=== PATIENT | female | born 1985 | race Hispanic/Latino ===

== ENCOUNTER 2017-12-07 18:39 | Emergency (ER) | payer OTHER, SELFPAY ==
[2017-12-07] MEDS ORDERED: ACETAMINOPHEN EXTRA STRENGTH 500 MG TABLET ONE (19:23)
[2017-12-07 19:56] LABS: APPEARANCE,URINE Clear (CLEAR); BILIRUBIN,URINE Negative (NEGATIVE); COLOR,URINE Yellow (YELLOW); GLUCOSE, URINE (UA) Negative (NEGATIVE); KETONES,URINE Negative (NEGATIVE); LEUKOCYTE ESTERASE ,URINE Trace (NEGATIVE); NITRATE,URINE Negative (NEGATIVE); OCCULT BLOOD,URINE Negative (NEGATIVE); PROTEIN,URINE Negative (NEGATIVE); UROBILINOGEN,URINE 0.2 mg/dL (0.2-1.0)
[2017-12-07 20:05] LABS: HCG,QUAL RESULT NEGATIVE (NEGATIVE)
[2017-12-07 20:13] LABS: BACTERIA,URINE Few /HPF (None Seen); RBC,URINE None Seen /HPF (0-1)
[2017-12-07] MEDS ORDERED: IPRATROPIUM/ALBUTEROL SULFATE 3 ML SOLUTION IH ONE (20:25)
[2017-12-07] MEDS ORDERED: IBUPROFEN 600 MG TABLET ONE (20:48)
== END 2017-12-07 21:01 | disposition home or self-care (01) ==
LOC: EDH 18:39
DX: J10.1 Influenza due to other identified influenza virus with other respiratory manifestations (principal); Z98.890 Other specified postprocedural states
CPT/HCPCS: 71046; 81001; 81025; 87804; 94640

== ENCOUNTER 2019-01-16 10:18 | Emergency (ER) | payer OTHER, SELFPAY | END 2019-01-16 11:38 | disposition home or self-care (01) | LOC: EDH 10:18 | DX: S93.492A Sprain of other ligament of left ankle, initial encounter (principal); Z98.890 Other specified postprocedural states; Z87.891 Personal history of nicotine dependence; W01.0XXA Fall on same level from slipping, tripping and stumbling without subsequent striking against object, initial encounter; Y93.89 Activity, other specified; Y92.89 Other specified places as the place of occurrence of the external cause; Y99.8 Other external cause status | CPT/HCPCS: 73610 ==

== ENCOUNTER 2019-09-23 00:16 | Inpatient (IN) | payer OTHER, SELFPAY ==
[~2019-09-23] VITALS: Ht 170.2 cm; Wt 120.9 kg
[2019-09-23 00:42] LABS: BILIRUBIN,URINE Small (NEGATIVE); COLOR,URINE Dark Yellow (YELLOW); GLUCOSE, URINE (UA) TRACE mg/dL (NEGATIVE); KETONES,URINE Trace mg/dL (NEGATIVE); LEUKOCYTE ESTERASE ,URINE Small (NEGATIVE); NITRATE,URINE Negative (NEGATIVE); OCCULT BLOOD,URINE Negative (NEGATIVE); PH,URINE 5.5 (5.0-8.0); PROTEIN,URINE POS 1+ mg/dL (NEGATIVE)
[2019-09-23 00:43] LABS: HCG,QUAL RESULT NEGATIVE (NEGATIVE)
[2019-09-23 00:44] LABS: APPEARANCE,URINE SLIGHTLY CLOUDY (CLEAR)
[2019-09-23 00:53] LABS: BACTERIA,URINE Few /HPF (None Seen); MUCUS,URINE Few LPF (None Seen); RBC,URINE 0-1 /HPF (0-1)
[2019-09-23 01:16] LABS: BASOPHILS % (AUTO) 0.5 % (0.0-5.0); EOSINOPHILS % (AUTO) 1.4 % (0.0-8.0); HEMATOCRIT 37.4 % (36-48); LYMPHOCYTES % (AUTO) 10.2 % (21.0-51.0); MEAN CORPUSCULAR HEMOGLOBIN 28.5 pg (27.0-33.0); MEAN CORPUSCULAR HGB CONC 34.2 g/dL (32.0-36.0); MEAN CORPUSCULAR VOLUME 83.3 fL (79-99); MONOCYTES % (AUTO) 9.3 % (3.0-13.0); NEUTROPHILS % (AUTO) 78.1 % (40.0-77.0); PLATELET COUNT (AUTO) 257 K/uL (130-400); RED BLOOD CELL COUNT(AUTO) 4.49 MIL/uL (4.00-5.50); RED CELL DISTRIBUTION WIDTH 12.3 % (11.0-15.5); WHITE BLOOD COUNT (AUTO) 13.7 K/uL (4.8-10.8)
[2019-09-23] MEDS ORDERED: KETOROLAC TROMETHAMINE 30MG/ML ONE (01:20)
[2019-09-23] MEDS ORDERED: ACETAMINOPHEN EXTRA STRENGTH 500 MG TABLET ONE (01:21)
[2019-09-23] MEDS ORDERED: FAMOTIDINE/PF 20 MG/2 ML VIAL IV ONE (01:21)
[2019-09-23 01:25] LABS: CREATININE 0.7 mg/dL (0.5-1.5); POTASSIUM 3.6 mmol/L (3.5-5.1)
[2019-09-23 01:28] LABS: INR 0.97 (0.85-1.15); PARTIAL THROMBOPLASTIN TIME 28.5 SEC (26.3-35.5); PROTHROMBIN TIME 10.2 SEC (9.6-11.6)
[2019-09-23 01:30] LABS: ALBUMIN 3.6 g/dL (3.5-5.0); BILIRUBIN,TOTAL 2.5 mg/dL (0.2-1.0); TOTAL PROTEIN, SERUM 7.1 g/dL (6.0-8.3)
[2019-09-23] MEDS ORDERED: IOHEXOL-350 75 ML VIAL IV ONE (02:33)
[2019-09-23] MEDS ORDERED: LEVOFLOXACIN 750 MG/D5W 150 ML 150 ML ONE (03:25)
[2019-09-23] MEDS ORDERED: METRONIDAZOLE 500MG/100ML BAG 100 ML ONE (03:25)
[2019-09-23] MEDS ORDERED: MORPHINE SULFATE 2 MG/ML 1ML SYG ONE (03:53)
[2019-09-23] MEDS ORDERED: ONDANSETRON HCL 4 MG/2 ML VIAL ONE (03:53)
[2019-09-23] MEDS ORDERED: HYDRALAZINE HCL 20 MG/ML VIAL IV PRN (04:15)
[2019-09-23] MEDS ORDERED: ACETAMINOPHEN 325 MG TAB PO PRN (04:15)
[2019-09-23] MEDS ORDERED: LACTULOSE 20 GM/30 ML UDCUP PO PRN (04:15)
[2019-09-23] MEDS ORDERED: MORPHINE SULFATE 2 MG/ML 1ML SYG IV PRN (04:15)
[2019-09-23 05:00] VITALS: BP 113/62
[2019-09-23] MEDS ORDERED: METRONIDAZOLE 500MG/100ML BAG 100 ML IV SCH (06:00)
[2019-09-23] MEDS ORDERED: METO-391 PO (06:12)
[2019-09-23] MEDS ORDERED: LISI-613 PO (06:12)
[2019-09-23] MEDS ORDERED: FEXO-23 PO (06:12)
[2019-09-23] MEDS ORDERED: P-EP1TBM2 PO (06:12)
[2019-09-23 07:00] VITALS: BP 100/67
[2019-09-23] MEDS: ENOXAPARIN SODIUM 40 MG/0.4 ML SYRINGE SQ SCH (09:26)
[2019-09-23] MEDS: METRONIDAZOLE 500MG/100ML BAG 100 ML IV SCH ×4 (09:26→20:49)
[2019-09-23 11:00] VITALS: BP 173/97
[2019-09-23] MEDS: ACETAMINOPHEN 325 MG TAB PO PRN ×2 (13:39→20:49)
[2019-09-23 16:00] VITALS: BP 129/97
--- NOTE | 2019-09-23 16:15 | NUR ---
D/C PLAN CM spoke to pt regarding d/c planning. Pt is ind. and lives with parents. States parents can assist in care as needed. CM provided community resources packet. Plan to home. No needs verbalized or identified. CM to f/u. Addendum: 09/23/19 at 1617 by HERMILO HUA CM Amended: Links added.
[2019-09-23] MEDS: SODIUM CHLORIDE 0.9% 1000ML 1,000 ML IV SCH ×2 (18:11→20:49)
[2019-09-23 19:27] VITALS: BP 124/92
[2019-09-23] MEDS ORDERED: PHARMACY COMMUNICATION MISC SCH (20:15)
[2019-09-24] VITALS: BP 132/74
[2019-09-24 04:04] VITALS: BP 127/74
[2019-09-24] MEDS: LEVOFLOXACIN 750 MG/D5W 150 ML 150 ML IV SCH (04:34)
[2019-09-24] MEDS: ONDANSETRON HCL 4 MG/2 ML VIAL IV PRN ×2 (04:40→21:43)
[2019-09-24 06:56] LABS: BASOPHILS % (AUTO) 0.6 % (0.0-5.0); EOSINOPHILS % (AUTO) 5.1 % (0.0-8.0); HEMATOCRIT 32.4 % (36-48); LYMPHOCYTES % (AUTO) 14.9 % (21.0-51.0); MEAN CORPUSCULAR HEMOGLOBIN 28.6 pg (27.0-33.0); MEAN CORPUSCULAR HGB CONC 34.6 g/dL (32.0-36.0); MEAN CORPUSCULAR VOLUME 82.7 fL (79-99); MONOCYTES % (AUTO) 10.5 % (3.0-13.0); NEUTROPHILS % (AUTO) 68.5 % (40.0-77.0); PLATELET COUNT (AUTO) 208 K/uL (130-400); RED BLOOD CELL COUNT(AUTO) 3.92 MIL/uL (4.00-5.50); RED CELL DISTRIBUTION WIDTH 12.2 % (11.0-15.5); WHITE BLOOD COUNT (AUTO) 9.5 K/uL (4.8-10.8)
[2019-09-24 07:00] VITALS: BP 143/86
[2019-09-24 07:06] LABS: CREATININE 0.6 mg/dL (0.5-1.5); POTASSIUM 3.6 mmol/L (3.5-5.1)
[2019-09-24] MEDS: IBUPROFEN 600 MG TABLET PO PRN ×2 (07:18→17:27)
[2019-09-24] MEDS ORDERED: LEVOFLOXACIN 750 MG/D5W 150 ML 150 ML IV SCH (09:00)
[2019-09-24] MEDS: METRONIDAZOLE 500MG/100ML BAG 100 ML IV SCH ×4 (09:09→21:44)
[2019-09-24] MEDS: ENOXAPARIN SODIUM 40 MG/0.4 ML SYRINGE SQ SCH (09:10)
[2019-09-24 12:00] VITALS: BP 157/91
[2019-09-24 16:00] VITALS: BP 154/97
[2019-09-24 19:34] VITALS: BP 147/84
[2019-09-24] MEDS: SODIUM CHLORIDE 0.9% 1000ML 1,000 ML IV SCH (21:44)
[2019-09-25] VITALS: BP 102/59
[2019-09-25 04:00] VITALS: BP 116/68
[2019-09-25] MEDS: LEVOFLOXACIN 750 MG/D5W 150 ML 150 ML IV SCH (04:40)
[2019-09-25] MEDS: ONDANSETRON HCL 4 MG/2 ML VIAL IV PRN ×3 (04:41→22:06)
[2019-09-25] MEDS: SODIUM CHLORIDE 0.9% 1000ML 1,000 ML IV SCH ×3 (06:07→16:07)
[2019-09-25 06:22] LABS: BASOPHILS % (AUTO) 0.7 % (0.0-5.0); EOSINOPHILS % (AUTO) 8.6 % (0.0-8.0); LYMPHOCYTES % (AUTO) 20.7 % (21.0-51.0); MEAN CORPUSCULAR HEMOGLOBIN 28.3 pg (27.0-33.0); MEAN CORPUSCULAR HGB CONC 34.1 g/dL (32.0-36.0); MEAN CORPUSCULAR VOLUME 83.1 fL (79-99); MONOCYTES % (AUTO) 9.8 % (3.0-13.0); NEUTROPHILS % (AUTO) 59.9 % (40.0-77.0); PLATELET COUNT (AUTO) 247 K/uL (130-400); RED BLOOD CELL COUNT(AUTO) 3.85 MIL/uL (4.00-5.50); WHITE BLOOD COUNT (AUTO) 6.7 K/uL (4.8-10.8)
[2019-09-25 06:39] LABS: CREATININE 0.6 mg/dL (0.5-1.5); POTASSIUM 3.8 mmol/L (3.5-5.1)
[2019-09-25 07:57] VITALS: BP 113/74
[2019-09-25] MEDS: METRONIDAZOLE 500MG/100ML BAG 100 ML IV SCH ×4 (09:29→22:06)
[2019-09-25] MEDS: ENOXAPARIN SODIUM 40 MG/0.4 ML SYRINGE SQ SCH (09:29)
[2019-09-25 11:32] VITALS: BP 152/98
[2019-09-25 16:00] VITALS: BP 142/77
[2019-09-25 20:00] VITALS: BP 138/80
[2019-09-25] MEDS ORDERED: METOPROLOL SUCCINATE 50 MG TAB.SR.24H PO SCH (21:00)
[2019-09-26] VITALS: BP 145/79
[2019-09-26] MEDS: SODIUM CHLORIDE 0.9% 1000ML 1,000 ML IV SCH ×2 (02:23→12:07)
[2019-09-26 04:00] VITALS: BP 117/73
[2019-09-26] MEDS: LEVOFLOXACIN 750 MG/D5W 150 ML 150 ML IV SCH (04:19)
[2019-09-26] MEDS: IBUPROFEN 600 MG TABLET PO PRN (04:23)
[2019-09-26] MEDS: ONDANSETRON HCL 4 MG/2 ML VIAL IV PRN (05:18)
[2019-09-26 05:32] LABS: EOSINOPHILS % (AUTO) 8.5 % (0.0-8.0); HEMATOCRIT 33.1 % (36-48); MEAN CORPUSCULAR HEMOGLOBIN 28.6 pg (27.0-33.0); MEAN CORPUSCULAR HGB CONC 34.7 g/dL (32.0-36.0); MEAN CORPUSCULAR VOLUME 82.3 fL (79-99); MONOCYTES % (AUTO) 9.7 % (3.0-13.0); NEUTROPHILS % (AUTO) 53.3 % (40.0-77.0); PLATELET COUNT (AUTO) 300 K/uL (130-400); RED BLOOD CELL COUNT(AUTO) 4.02 MIL/uL (4.00-5.50); RED CELL DISTRIBUTION WIDTH 11.9 % (11.0-15.5); WHITE BLOOD COUNT (AUTO) 5.9 K/uL (4.8-10.8)
[2019-09-26 05:41] LABS: CREATININE 0.6 mg/dL (0.5-1.5); POTASSIUM 3.1 mmol/L (3.5-5.1)
[2019-09-26 07:38] VITALS: BP 124/76
--- NOTE | 2019-09-26 08:20 | NUR ---
Reported nausea and vomiting overnight to Dr. Ahmadi as reported by Reny Sorto LVN. Zofran administered x2 IVP. Patient reports metallic taste during IV infusions. Per Dr. Ahmadi, will change Flagyl to PO form and monitor to see how patient tolerates regular diet. If no issues, will discharge this afternoon. Addendum: 09/26/19 at 0843 by LULA BRAGA RN RN Also reported potassium level of 3.1. Received verbal order for potassium replacement from Dr. Ahmadi.
[2019-09-26] MEDS ORDERED: LEVO500T89 PO (08:26)
[2019-09-26] MEDS ORDERED: METR500T PO (08:26)
[2019-09-26] MEDS ORDERED: LIDOCAINE HCL-MPF 1% 2ML VIAL IV PRN ×2 (08:30)
[2019-09-26] MEDS ORDERED: POTASSIUM CHLORIDE 20MEQ/100ML 100 ML IV PRN ×2 (08:30)
[2019-09-26] MEDS ORDERED: POTASSIUM CHLORIDE 10% ELIXIR 20 MEQ/15 ML UDCUP PO PRN (08:30)
[2019-09-26] MEDS ORDERED: LISINOPRIL 20 MG TABLET PO SCH (09:00)
[2019-09-26] MEDS: METRONIDAZOLE 500 MG TABLET PO SCH ×2 (09:30→17:46)
[2019-09-26] MEDS: POTASSIUM CHLORIDE 20 MEQ ERTAB PO PRN ×3 (09:36→14:34)
[2019-09-26] MEDS: ENOXAPARIN SODIUM 40 MG/0.4 ML SYRINGE SQ SCH (09:37)
[2019-09-26 11:09] VITALS: BP 142/93
--- NOTE | 2019-09-26 14:41 | NUR ---
Patient reports no nausea, less metallic taste to mouth and denies pain to abdomen. Tolerating meals. Notified Dr. Ahmadi. Will proceed with discharge.
[2019-09-26 15:42] VITALS: BP 133/95
--- NOTE | 2019-09-26 16:10 | NUR ---
Scheduled follow up appointment with SOLO Sutherland for 10/10/2019 at 8:00 am.
--- NOTE | 2019-09-26 16:26 | NUR ---
Confirmed electronic prescription transmission to [address] was received by pharmacy staff.
== END 2019-09-26 18:20 | disposition home or self-care (01) | DRG 872 ==
LOC: EDH 00:16 → EDHIP 00:17 → 3BH 04:54
PROVIDERS: ADMIT Internal Medicine; ATTEND Internal Medicine
DX: A41.9 Sepsis, unspecified organism (principal); K57.32 Diverticulitis of large intestine without perforation or abscess without bleeding; Z68.41 Body mass index [BMI] 40.0-44.9, adult; E66.01 Morbid (severe) obesity due to excess calories; I10 Essential (primary) hypertension; G43.909 Migraine, unspecified, not intractable, without status migrainosus
CPT/HCPCS: 36415; 74177; 80048; 80053; 81001; 81025; 83605; 83690; 85025; 85610; 85730; 87040; 87088; G0378; J0360; J1650; J1885; J1956; J2405; J3490; J7030; Q9967

== ENCOUNTER 2025-06-18 01:31 | Emergency (ER) | payer OTHER ==
[~2025-06-18] VITALS: Ht 167.6 cm; Wt 127.0 kg
[~2025-06-18 01:31] MED LIST: FEXO-23 PO; LEVO-70 PO; LISI20TA24 PO; METO-391 PO; METR500T PO
[2025-06-18 01:33] VITALS: BP 167/93; PULSE 77; RESP 20; TEMP 98
--- NOTE | 2025-06-18 03:04 | NUR ---
SYEDA HAMMOND AWARE OF NEED FOR EKG
[2025-06-18] MEDS ORDERED: MONT-39 PO (03:05)
--- NOTE | 2025-06-18 03:05 | ERN ---
General Chief Complaint: Congestion Stated Complaint: NASAL CONGESTION Source: patient History of Present Illness Initial Comments 32-year-old female with a past medical history of chronic nasal congestion presents to the emergency department for evaluation of nasal congestion. Patient states she has tried many [id number] medications with little to no relief. She developed which she believes his anxiety and chest tightness so she decided to report to the ER for further evaluation. Allergies: Coded Allergies: No Known Allergies (Unverified Allergy, Unknown, 01/16/19) Home Meds Active Scripts Levofloxacin (Levofloxacin) 500 Mg Tablet, 500 MG PO DAILY for 3 Days, #3 TAB Prov:DANNA PASCUAL MD 09/26/19 Metronidazole (Flagyl) 500 Mg Tablet, 500 MG PO TID for 3 Days, #9 TAB Prov:DANNA PASCUAL MD 09/26/19 Reported Medications Fexofenadine HCl (Erlinda Allergy) 60 Mg Tablet, 60 MG PO DAILY PRN for NASAL CONGESTION, TAB 09/23/19 Lisinopril (Lisinopril) 20 Mg Tablet, 20 MG PO DAILY, TAB 09/23/19 Metoprolol Succinate (Metoprolol Succinate) 50 Mg Tab.er.24h, 50 MG PO HS, TAB 09/23/19 Past Medical History Past Medical History: Other Medical History Other: SEASONAL ALLERGIES Past Surgical History: Tonsillectomy Female( History) LMP: Jun 10, 2025 ROS Dictation CONSTITUTIONAL: Negative except for HPI HEAD/FACE: Negative except for HPI EENT: Negative except for HPI RESPIRATORY: Negative except for HPI GASTROINTESTINAL/ABDOMINAL: Negative except for HPI GENITOURINARY: Negative except for HPI MUSCULOSKELETAL: Negative except for HPI INTEGUMENTARY: Negative except for HPI NEUROLOGICAL/PSYCH: Negative except for HPI HEMATOLOGIC/LYMPHATIC: Negative except for HPI All Systems Negative, Except as noted above. 13 point review of systems assessed and all negative except for above. Physical Exam Physical Exam Dictation Vital Signs reviewed General Appearance: Alert, oriented x 3, no acute distress, well developed, nourished. Head and Face: non-traumatic. Eyes: PERRL, pink conjunctivas, eyelid no trauma, anterior chamber with arcus senilis. Ears: Pinnas intact and no signs of trauma or erythema ear canals clear and no discharge TM no erythema Nose: No discharge, no bleeding. Oropharynx: Mouth normal, tongue pink, pharynx clear,no erythema, tonsils no exudates, no abscesses noted, mucous membrane moist Neck: Supple, non-tender, no thyromegaly, no masses, no JVD, no bruits Breast:Deferred Chest:No tenderness, no crepitus, no paradoxical movement, no retractions Lungs:Clear, well-ventilated, symmetric, no rales, no wheezing, no rhonchi, no stridor, good breath sounds bilaterally Heart: Regular rate, regular rhythm, no murmur, no gallops Vascular: no peripheral edema, Abdomen: Soft, positive bowel sounds, nondistended, no guarding, nontender, no rebound, no masses no hepatomegaly, no splenomegaly, no Zaragoza's sign, no hernias. Rectal: Deferred Genital: Deferred Neurological: Normal speech, motor function intact, sensory function intact Musculoskeletal: Neck nontender, full range of motion, back nontender, full range of motion, Extremities: nontender, full range of motion Skin: Color pink, dry, no turgor, no rash, no lacerations, no abrasions, no contusions. Lymphatic: Deferred MDM MDM: Differential diagnosis: Upper respiratory infection, seasonal allergies, viral illness There are no social concerns with this patient. Prescription drug management Prescriptions will include: medrol pack, montelukast Medical management and examination interpretation discussions were had by me with other qualified healthcare professionals as indicated for the patient's care. ED Course Orders Procedure Category Date Status Time Dexamethasone 4mg/Ml PHA 06/18/25 Verified 1ml Vial (Dexametha 03:30 Oxymetazoline Hcl PHA 06/18/25 Verified [place] (Afrin) 03:30 12 Lead Ekg Tracing- EKG 06/18/25 Verified Technical 03:02 Vital Signs Date Time Temp Pulse Resp B/P (MAP) Pulse Ox O2 Delivery O2 Flow Rate FiO2 06/18/25 01:33 98.1 77 20 167/93 98 Room Air DX & DISP Disposition: Discharge Departure Impression: Primary Impression: Nasal congestion Condition: Stable Scripts Montelukast Sodium (Montelukast Sodium) 10 Mg Tablet 1 TAB PO DAILY for 14 Days, #14 TAB 0 Refills Prov: MARIAN QUISPE PAC 06/18/25 Referrals: NESSA AGUILAR (PCP) I have reviewed the case, and I agree with, Diagnosis and Plan I performed the substantive portion of the visit. I have reviewed and personally made and approve the management plan that is documented in the note by myself or the JUAN ANTONIO. I acknowledge for responsibility for the patient's management plan. MARIAN QUISPE PAC Jun 18, 2025 03:05
--- NOTE | 2025-06-18 03:27 | EKG ---
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
[2025-06-18] MEDS: OXYmetazoline HCL SPRAY 100 SPRAYS/15 ML BOTTLE EN ONE (03:42)
== END 2025-06-18 03:44 | disposition home or self-care (01) ==
LOC: EDH 01:31
DX: R09.81 Nasal congestion (principal); Z79.899 Other long term (current) drug therapy; Z90.89 Acquired absence of other organs
CPT/HCPCS: 99283; 96372; 93005; J1100